=== PATIENT | female | born 1995 | race African-American/Black ===

== ENCOUNTER 2017-05-13 02:50 | Inpatient (IN) | payer MEDICAID ==
[2017-05-13] VITALS (18 sets, daily range): BP systolic 103–139; BP diastolic 53–84
[~2017-05-13] VITALS: Ht 149.9 cm; Wt 41.3 kg
[~2017-05-13 02:50] MED LIST: ACYC200C PO; ATOR20TA PO; INSU3INS6 SUBCUT; LISI10TA5 PO; OMEP20CA10 PO
[2017-05-13] MEDS ORDERED: KETOROLAC 30MG/ML VIAL IV STA (03:18)
[2017-05-13] MEDS ORDERED: SODIUM CHLORIDE 0.9% 1,000 ML IV ONE (03:18)
[2017-05-13] MEDS ORDERED: ONDANSETRON HCL 4MG/2ML VIAL IV STA (03:18)
[2017-05-13 03:43] LABS: BASOPHILS % 0.3 % (0.0-2.0); EOSINOPHILS % 0.2 % (0.0-5.0); HEMATOCRIT. 45.5 % (36.0-48.0); HEMOGLOBIN. 15.1 g/dL (12.0-16.0); LYMPHOCYTES % 36.5 % (20.0-50.0); MEAN CORPUSCULAR HEMOGLOBIN 31.5 pg (28.0-32.0); MEAN CORPUSCULAR VOLUME 95.1 fL (81.0-99.0); MEAN PLATELET VOLUME 8.1 fl (7.4-10.4); MONOCYTES % 4.6 % (2.0-8.0); NEUTROPHILS % 58.4 % (40.0-76.0); PLATELET 379 x1000/uL (130-400); RED BLOOD CELL COUNT 4.78 mill/uL (4.2-5.4); RED CELL DISTRIBUTION WIDTH 12.8 % (11.6-14.6)
[2017-05-13 03:45] LABS: CLARITY URINE CLEAR (CLEAR); COLOR URINE YELLOW (YELLOW); GLUCOSE URINE 3+ (NEGATIVE); KETONES URINE 4+ (NEGATIVE); LEUKOCYTE ESTERASE URINE NEGATIVE (NEGATIVE); NITRITE URINE NEGATIVE (NEGATIVE); OCCULT BLOOD URINE 2+ (NEGATIVE); PROTEIN URINE NEGATIVE (NEGATIVE); SPECIFIC GRAVITY URINE 1.033 (1.005-1.030); UROBILINOGEN URINE 0.2 E.U./dL (0.2-1.0)
[2017-05-13 03:48] LABS: HCG SCREEN NEGATIVE; INR 1.1; PROTHROMBIN TIME 11.5 sec
[2017-05-13 03:54] LABS: CARBON DIOXIDE 11 mEq/L (21-32); CHLORIDE 94 mEq/L (98-107)
[2017-05-13] MEDS ORDERED: METOCLOPRAMIDE HCL 10MG/2ML VIAL IV ONE (04:15)
[2017-05-13] MEDS ORDERED: INSULIN REGULAR (DRIP) 100 UNITS in SODIUM CHLORIDE 0.9% 100 ML IV ONE ×4 (04:30)
[2017-05-13] MEDS ORDERED: MORPHINE SULFATE 4 MG/ML CPJ (NOT FOR IM USE) IV ONE ×2 (05:00→05:30)
[2017-05-13 07:28] LABS: CARBON DIOXIDE 12 mEq/L (21-32); CHLORIDE 104 mEq/L (98-107)
[2017-05-13] MEDS ORDERED: DEXTROSE 50% WATER 50ML SYRINGE IV PRN (07:30)
[2017-05-13] MEDS ORDERED: INSULIN REGULAR (DRIP) 100 UNITS in SODIUM CHLORIDE 0.9% 99 ML IV PRN (07:45)
[2017-05-13] MEDS ORDERED: CLONIDINE 0.1MG TABLET PO PRN (08:15)
[2017-05-13] MEDS ORDERED: ZOLPIDEM TARTRATE 5MG TABLET PO PRN (08:15)
[2017-05-13] MEDS ORDERED: SODIUM CHLORIDE 0.9% 1,000 ML IV SCH (08:15)
[2017-05-13] MEDS ORDERED: NA PHOS,M-B/NA PHOS,DI-BA ENEMA 118ML PR PRN (08:15)
[2017-05-13] MEDS ORDERED: IPRATROPIUM/ALBUTEROL 0.5-3(2.5)MG/3ML NEB INH PRN (08:15)
[2017-05-13] MEDS: BLOOD SUGAR DIAGNOSTIC STRIP TEST SCH ×16 (08:15→23:02)
[2017-05-13] MEDS ORDERED: GUAIFENESIN 200MG/10ML SUGAR FREE UDC PO PRN (08:15)
[2017-05-13] MEDS ORDERED: DOCUSATE SODIUM 100MG CAPSULE PO PRN (08:15)
[2017-05-13] MEDS ORDERED: MAGNESIUM/ALUMINUM HYDROXIDE/SIMETHICONE 30ML UDC PO PRN (08:15)
[2017-05-13] MEDS ORDERED: ACETAMINOPHEN 325MG TABLET PO PRN (08:15)
[2017-05-13] MEDS: ONDANSETRON HCL 4MG/2ML VIAL IV PRN ×3 (08:20→23:30)
[2017-05-13] MEDS: PANTOPRAZOLE SODIUM 40 MG/VIAL IV SCH (08:21)
[2017-05-13] MEDS: LORAZEPAM 2MG/ML CPJ IV PRN ×2 (08:56→13:39)
[2017-05-13] MEDS: KETOROLAC 30MG/ML VIAL IV PRN ×2 (08:56→17:55)
[2017-05-13 11:22] LABS: *AMPHETAMINES SCREEN URINE NEGATIVE (NEGATIVE); *BARBITURATES SCREEN URINE NEGATIVE (NEGATIVE); *BENZODIAZEPINES SCREEN URINE NEGATIVE (NEGATIVE); *COCAINE SCREEN URINE NEGATIVE (NEGATIVE); METHADONE URINE SCREEN NEGATIVE (NEGATIVE); OPIATES URINE SCREEN NEGATIVE (NEGATIVE); PHENCYCLIDINE URINE SCREEN NEGATIVE (NEGATIVE)
[2017-05-13 11:43] LABS: CANNABINOID URINE SCREEN PRESUMTIVE POSITIVE (NEGATIVE)
[2017-05-13 12:38] LABS: CARBON DIOXIDE 17 mEq/L (21-32); CHLORIDE 109 mEq/L (98-107)
[2017-05-13 12:39] LABS: PHOSPHORUS 2.5 mg/dL (2.5-4.9)
[2017-05-13] MEDS ORDERED: DEXT 5%/0.9% NACL 1,000 ML IV SCH (12:45)
[2017-05-13] MEDS: SUCRALFATE 1 G/10 ML UDC PO SCH ×3 (12:53→20:48)
[2017-05-13] MEDS: ERYTHROMYCIN LACTOBIONATE 500 MG in SODIUM CHLORIDE 0.9% 100 ML IV SCH ×2 (12:53→17:04)
[2017-05-13] MEDS: METOCLOPRAMIDE 10MG/10 ML UDC PO SCH ×3 (12:53→20:48)
[2017-05-13 15:40] LABS: CARBON DIOXIDE 15 mEq/L (21-32); CHLORIDE 109 mEq/L (98-107)
[2017-05-13] MEDS: DEXT 5%/0.9% NACL KCL 20MEQ/L 1,000 ML IV SCH (17:54)
[2017-05-13] MEDS: DIPHENHYDRAMINE 50MG/ML VIAL IV PRN ×2 (17:54→23:30)
[2017-05-13] MEDS ORDERED: POTASSIUM CHLORIDE INJ 20 MEQ in DEXT 5%/0.9% NACL 1,000 ML IV SCH (18:00)
[2017-05-13] MEDS ORDERED: POTASSIUM PHOS,M-BASIC-D-BASIC 15 MMOL in DEXT 5% WATER 245 ML IV NR (18:00)
[2017-05-13] MEDS: DEXTROSE 50% WATER 50ML SYRINGE IV PRN ×2 (18:20→22:58)
[2017-05-14] VITALS (15 sets, daily range): BP systolic 99–142; BP diastolic 53–90
[2017-05-14] MEDS: BLOOD SUGAR DIAGNOSTIC STRIP TEST SCH ×9 (00:29→08:13)
[2017-05-14] MEDS: DEXT 5%/0.9% NACL KCL 20MEQ/L 1,000 ML IV SCH ×2 (00:50→06:26)
[2017-05-14] MEDS: ONDANSETRON HCL 4MG/2ML VIAL IV PRN ×2 (02:51→06:54)
[2017-05-14] MEDS: DIPHENHYDRAMINE 50MG/ML VIAL IV PRN (03:46)
[2017-05-14] MEDS: KETOROLAC 30MG/ML VIAL IV PRN ×2 (03:47→13:13)
[2017-05-14] MEDS: LORAZEPAM 2MG/ML CPJ IV PRN ×2 (04:41→08:49)
[2017-05-14 06:48] LABS: CARBON DIOXIDE 17 mEq/L (21-32); CHLORIDE 115 mEq/L (98-107)
[2017-05-14] MEDS: METOCLOPRAMIDE 10MG/10 ML UDC PO SCH ×2 (08:12→13:13)
[2017-05-14] MEDS: PANTOPRAZOLE SODIUM 40 MG/VIAL IV SCH (08:12)
[2017-05-14] MEDS: SUCRALFATE 1 G/10 ML UDC PO SCH ×2 (08:12→13:13)
[2017-05-14] MEDS ORDERED: DEXTROSE 50% WATER 50ML SYRINGE IV PRN (08:15)
[2017-05-14] MEDS: INSULIN LISPRO 100 UNITS/ML SUBCUT SCH ×2 (08:20→13:20)
[2017-05-14] MEDS ORDERED: POTASSIUM CHLORIDE 20MEQ TABLET SR PO SCH (08:30)
[2017-05-14] MEDS ORDERED: INSULIN DETEMIR UD 100 UNITS/ML SYR SUBCUT SCH (10:00)
[2017-05-14 11:24] LABS: CARBON DIOXIDE 18 mEq/L (21-32); CHLORIDE 111 mEq/L (98-107); PHOSPHORUS 1.1 mg/dL (2.5-4.9)
[2017-05-14] MEDS ORDERED: INSULIN LISPRO 100 UNITS/ML SUBCUT SCH (12:50)
[2017-05-14] MEDS ORDERED: BLOOD SUGAR DIAGNOSTIC STRIP TEST SCH (12:50)
[2017-05-14] MEDS: DEXTROSE 50% WATER 50ML SYRINGE IV PRN (13:02)
== END 2017-05-14 15:00 | disposition home or self-care (01) | DRG 420 ==
LOC: ER 03:00 → ENRESERV 05:41 → CVICU 05:50 → EDBEDREQ 05:54
PROVIDERS: ADMIT Internal Medicine Critical Care Medicine; ATTEND Internal Medicine
DX: E13.10 Other specified diabetes mellitus with ketoacidosis without coma (principal); E83.39 Other disorders of phosphorus metabolism; I10 Essential (primary) hypertension; E87.1 Hypo-osmolality and hyponatremia; F12.10 Cannabis abuse, uncomplicated; E87.6 Hypokalemia; E83.52 Hypercalcemia; E78.00 Pure hypercholesterolemia, unspecified; F17.200 Nicotine dependence, unspecified, uncomplicated; Z91.14 Patient's other noncompliance with medication regimen; Z79.4 Long term (current) use of insulin
CPT/HCPCS: 36415; 74176; 80048; 80053; 80061; 80305; 81001; 82962; 83036; 83690; 84100; 84703; 85025; 85610; 96374; 96375; 96376; 99291; C1725; C9113; J1200; J1364; J1815; J1885; J2060; J2270; J2405; J2765; J3480; J3490; J7030; J7042; J7050; J7060; J8597

== ENCOUNTER 2018-08-21 16:39 | Emergency (ER) | payer MEDICAID ==
[~2018-08-21] VITALS: Ht 162.6 cm; Wt 55.0 kg
[2018-08-21] MEDS ORDERED: KETOROLAC 30MG/ML VIAL IV STA (17:39)
[2018-08-21] MEDS ORDERED: SODIUM CHLORIDE 0.9% 1,000 ML IV ONE ×2 (17:39→19:15)
[2018-08-21] MEDS ORDERED: ONDANSETRON HCL 4MG/2ML INJ IV STA (17:39)
[2018-08-21 19:18] LABS: BASOPHILS % 0.5 % (0.0-2.0); EOSINOPHILS % 0.9 % (0.0-5.0); HEMATOCRIT. 42.5 % (36.0-48.0); HEMOGLOBIN. 13.8 g/dL (12.0-16.0); LYMPHOCYTES % 35.5 % (20.0-50.0); MEAN CORPUSCULAR HEMOGLOBIN 32.4 pg (28.0-32.0); MEAN CORPUSCULAR VOLUME 99.4 fL (81.0-99.0); MEAN PLATELET VOLUME 8.2 fl (7.4-10.4); MONOCYTES % 6.9 % (2.0-8.0); NEUTROPHILS % 56.2 % (40.0-76.0); PLATELET 496 x1000/uL (130-400); RED BLOOD CELL COUNT 4.27 mill/uL (4.2-5.4); RED CELL DISTRIBUTION WIDTH 13.2 % (11.6-14.6)
[2018-08-21 19:24] LABS: CHLORIDE 88 mEq/L (98-107)
[2018-08-21 19:38] LABS: BETA HYDROXYBUTYRATE 0.9 mMol/L (0.0-0.3)
[2018-08-21 20:03] LABS: CLARITY URINE CLEAR (CLEAR); COLOR URINE YELLOW (YELLOW); KETONES URINE 1+ (NEGATIVE); LEUKOCYTE ESTERASE URINE NEGATIVE (NEGATIVE); NITRITE URINE NEGATIVE (NEGATIVE); OCCULT BLOOD URINE NEGATIVE (NEGATIVE); PH URINE 6.5 (4.5-8.0); PROTEIN URINE NEGATIVE (NEGATIVE); SPECIFIC GRAVITY URINE 1.033 (1.005-1.030); UROBILINOGEN URINE 0.2 E.U./dL (0.2-1.0)
[2018-08-21] MEDS ORDERED: INSULIN REGULAR 0.5UNIT/ML SYR(NEO) IV ONE (20:45)
[2018-08-21] MEDS ORDERED: INSULIN REGULAR (HUMULIN R) UD 100 UNITS/ML SYR IV ONE (21:15)
[2018-08-21] MEDS ORDERED: CEFTRIAXONE SODIUM 1 G/VIAL IV ONE (22:15)
[2018-08-21] MEDS ORDERED: ONDANSETRON HCL 4MG/2ML INJ IM ONE (22:15)
[2018-08-21] MEDS ORDERED: MORPHINE SULFATE 4 MG/ML CPJ (NOT FOR IM USE) IV ONE (22:15)
[2018-08-21] MEDS ORDERED: OMEPRAZOLE 20MG CAPSULE EXTENDED RELEASE PO ONE (22:30)
[2018-08-21 22:34] VITALS: BP 130/88
== END 2018-08-21 23:46 | disposition home or self-care (01) ==
LOC: ER 16:49
DX: E10.65 Type 1 diabetes mellitus with hyperglycemia (principal); R39.15 Urgency of urination; R10.30 Lower abdominal pain, unspecified; I10 Essential (primary) hypertension; F12.10 Cannabis abuse, uncomplicated; Z79.4 Long term (current) use of insulin; Z79.899 Other long term (current) drug therapy
CPT/HCPCS: 36415; 74150; 80053; 81003; 81025; 82010; 82962; 85025; 87077; 87086; 96361; 96372; 96374; 96375; 99285; J0696; J1815; J1885; J2270; J2405; J7030; Z7610

== ENCOUNTER 2018-09-17 22:11 | Inpatient (IN) | payer MEDICAID ==
[~2018-09-17] VITALS: Ht 139.7 cm; Wt 49.0 kg
[2018-09-17] MEDS ORDERED: METOCLOPRAMIDE HCL 10MG/2ML VIAL IV ONE (23:30)
[2018-09-17] MEDS ORDERED: KETOROLAC 30MG/ML VIAL IV STA (23:30)
[2018-09-17] MEDS ORDERED: SODIUM CHLORIDE 0.9% 1,000 ML IV ONE (23:30)
[2018-09-17 23:59] LABS: BASOPHILS % 0.2 % (0.0-2.0); HEMATOCRIT. 43.2 % (36.0-48.0); HEMOGLOBIN. 14.3 g/dL (12.0-16.0); LYMPHOCYTES % 29.2 % (20.0-50.0); MEAN CORPUSCULAR HEMOGLOBIN 32.7 pg (28.0-32.0); MEAN CORPUSCULAR VOLUME 98.7 fL (81.0-99.0); MEAN PLATELET VOLUME 7.6 fl (7.4-10.4); MONOCYTES % 4.9 % (2.0-8.0); NEUTROPHILS % 65.7 % (40.0-76.0); PLATELET 421 x1000/uL (130-400); RED BLOOD CELL COUNT 4.37 mill/uL (4.2-5.4); RED CELL DISTRIBUTION WIDTH 13.4 % (11.6-14.6)
[2018-09-18 00:12] LABS: CLARITY URINE CLOUDY (CLEAR); COLOR URINE YELLOW (YELLOW); KETONES URINE 4+ (NEGATIVE); LEUKOCYTE ESTERASE URINE NEGATIVE (NEGATIVE); NITRITE URINE NEGATIVE (NEGATIVE); OCCULT BLOOD URINE NEGATIVE (NEGATIVE); PROTEIN URINE TRACE (NEGATIVE); SPECIFIC GRAVITY URINE 1.027 (1.005-1.030); UROBILINOGEN URINE 0.2 E.U./dL (0.2-1.0)
[2018-09-18 00:16] LABS: CHLORIDE 96 mEq/L (98-107)
[2018-09-18 00:24] LABS: ETHANOL BLOOD < 10 mg/dL
[2018-09-18 00:38] LABS: *AMPHETAMINES SCREEN URINE NEGATIVE (NEGATIVE); *BARBITURATES SCREEN URINE NEGATIVE (NEGATIVE); *BENZODIAZEPINES SCREEN URINE NEGATIVE (NEGATIVE); *COCAINE SCREEN URINE NEGATIVE (NEGATIVE); METHADONE URINE SCREEN NEGATIVE (NEGATIVE); OPIATES URINE SCREEN NEGATIVE (NEGATIVE)
[2018-09-18 00:40] LABS: PHENCYCLIDINE URINE SCREEN NEGATIVE (NEGATIVE)
[2018-09-18 00:45] LABS: CANNABINOID URINE SCREEN PRESUMTIVE POSITIVE (NEGATIVE)
[2018-09-18] MEDS ORDERED: SODIUM CHLORIDE 0.9% 1,000 ML IV ONE (01:30)
[2018-09-18] MEDS ORDERED: INSULIN REGULAR (DRIP) 100 UNITS in SODIUM CHLORIDE 0.9% 100 ML IV ONE (02:59)
[2018-09-18 05:52] LABS: CHLORIDE 100 mEq/L (98-107)
[2018-09-18] MEDS: SODIUM CHLORIDE 0.9% 1,000 ML IV SCH ×3 (05:57→22:20)
[2018-09-18 07:42] LABS: CHLORIDE 107 mEq/L (98-107)
[2018-09-18 08:39] LABS: CHLORIDE 105 mEq/L (98-107)
[2018-09-18] MEDS ORDERED: INSULIN LISPRO 100 UNITS/ML SUBCUT ONE (09:15)
[2018-09-18] MEDS ORDERED: ONDANSETRON HCL 4MG/2ML INJ IV NR (09:15)
[2018-09-18] MEDS ORDERED: INSULIN LISPRO 100 UNITS/ML SUBCUT NR (09:30)
[2018-09-18] MEDS: MORPHINE SULFATE 4 MG/ML CPJ (NOT FOR IM USE) IV PRN ×3 (09:45→22:19)
[2018-09-18] MEDS: DEXT 5%/0.9% NACL 1,000 ML IV SCH ×2 (09:47→23:29)
[2018-09-18] MEDS ORDERED: INSULIN GLARGINE UD 100 UNITS/ML SYR SUBCUT NR (10:00)
[2018-09-18 10:22] LABS: BASOPHILS % 0.4 % (0.0-2.0); HEMOGLOBIN. 12.6 g/dL (12.0-16.0); LYMPHOCYTES % 19.6 % (20.0-50.0); MEAN CORPUSCULAR HEMOGLOBIN 32.8 pg (28.0-32.0); MEAN CORPUSCULAR VOLUME 99.1 fL (81.0-99.0); MEAN PLATELET VOLUME 6.9 fl (7.4-10.4); MONOCYTES % 5.9 % (2.0-8.0); NEUTROPHILS % 74.1 % (40.0-76.0); PLATELET 498 x1000/uL (130-400); RED BLOOD CELL COUNT 3.84 mill/uL (4.2-5.4); RED CELL DISTRIBUTION WIDTH 13.4 % (11.6-14.6)
[2018-09-18 10:38] LABS: CHLORIDE 103 mEq/L (98-107)
[2018-09-18 10:47] LABS: BETA HYDROXYBUTYRATE 4.1 mMol/L (0.0-0.3)
[2018-09-18] MEDS ORDERED: INSULIN REGULAR (HUMULIN R) 300UNITS/3ML SUBCUT NR (11:45)
[2018-09-18] MEDS: METOCLOPRAMIDE HCL 10MG/2ML VIAL IV PRN ×2 (11:51→19:49)
[2018-09-18 21:20] VITALS: BP_SYST 119; BP_SYST 137; BP_DIAS 72; BP_DIAS 76
[2018-09-18 22:00] VITALS: BP 177/57
[2018-09-18] MEDS ORDERED: FAMO20TA8 MT (23:21)
[2018-09-18] MEDS ORDERED: METO-293 MT (23:21)
[2018-09-19] VITALS (12 sets, daily range): BP systolic 112–145; BP diastolic 65–90
[2018-09-19] MEDS ORDERED: METOCLOPRAMIDE HCL PO PRN
[2018-09-19] MEDS: CEFTRIAXONE 1 G PREMIX 50 ML IV SCH ×2 (00:04→21:14)
[2018-09-19] MEDS ORDERED: METOCLOPRAMIDE HCL 10MG TABLET PO PRN (01:15)
[2018-09-19] MEDS: METOCLOPRAMIDE HCL 10MG/2ML VIAL IV PRN ×3 (01:56→17:37)
[2018-09-19] MEDS: MORPHINE SULFATE 4 MG/ML CPJ (NOT FOR IM USE) IV PRN ×5 (03:56→23:08)
[2018-09-19] MEDS ORDERED: POLYETHYLENE GLYCOL 3350 (17GM) 1 DOSE PACK PO SCH (05:45)
[2018-09-19] MEDS ORDERED: CEFTRIAXONE 1 G PREMIX 50 ML IV ONE (06:00)
[2018-09-19] MEDS ORDERED: DEXTROSE 50% WATER 50ML SYRINGE IV PRN (06:15)
[2018-09-19 06:29] LABS: BASOPHILS % 0.6 % (0.0-2.0); EOSINOPHILS % 0.4 % (0.0-5.0); HEMATOCRIT. 33.9 % (36.0-48.0); HEMOGLOBIN. 11.3 g/dL (12.0-16.0); MEAN CORPUSCULAR HEMOGLOBIN 33.2 pg (28.0-32.0); MEAN CORPUSCULAR VOLUME 99.7 fL (81.0-99.0); MEAN PLATELET VOLUME 7.3 fl (7.4-10.4); MONOCYTES % 5.7 % (2.0-8.0); NEUTROPHILS % 68.3 % (40.0-76.0); PLATELET 412 x1000/uL (130-400); RED CELL DISTRIBUTION WIDTH 13.5 % (11.6-14.6)
[2018-09-19] MEDS ORDERED: BLOOD SUGAR DIAGNOSTIC STRIP TEST SCH (07:30)
[2018-09-19] MEDS ORDERED: OMEPRAZOLE 20MG CAPSULE EXTENDED RELEASE PO SCH (07:30)
[2018-09-19] MEDS: ACYCLOVIR 400 MG TABLET PO SCH ×2 (08:07→16:27)
[2018-09-19] MEDS: PANTOPRAZOLE 40MG DR TABLET PO SCH (08:07)
[2018-09-19] MEDS: LISINOPRIL 10MG TABLET PO SCH (08:07)
[2018-09-19] MEDS: INSULIN LISPRO 100 UNITS/ML SUBCUT SCH ×4 (08:09→21:13)
[2018-09-19 08:11] LABS: CHLORIDE 100 mEq/L (98-107)
[2018-09-19] MEDS: BLOOD SUGAR DIAGNOSTIC STRIP TEST SCH ×4 (08:12→21:14)
[2018-09-19] MEDS ORDERED: MEDICATION NOT ON FORMULARY EA (Lisinopril 10 MG) PO SCH (09:00)
[2018-09-19] MEDS ORDERED: FAMOTIDINE 20MG TABLET PO SCH (09:00)
[2018-09-19] MEDS ORDERED: MEDICATION NOT ON FORMULARY EA (Famotidine 1 TAB) MT SCH (09:00)
[2018-09-19] MEDS ORDERED: MEDICATION NOT ON FORMULARY EA (Acyclovir 400 MG) PO SCH (09:00)
[2018-09-19] MEDS ORDERED: MAGNESIUM SULFATE 2 GM in DEXTROSE 5% WATER 50 ML IV NR (13:00)
[2018-09-19] MEDS ORDERED: POTASSIUM PHOS,M-BASIC-D-BASIC 30 MMOL in DEXT 5% WATER 500 ML IV NR (13:00)
[2018-09-19] MEDS ORDERED: MEDICATION NOT ON FORMULARY EA (Insulin Glargine,Hum.rec.anlog (Lantus Solostar) 20 UNIT SUBCUT SCH (17:00)
[2018-09-19] MEDS ORDERED: INFLUENZA VIRUS VACCINE(AFLURIA) 0.5ML SYR IM ONE (20:30)
[2018-09-19] MEDS ORDERED: ATORVASTATIN CALCIUM 20MG TABLET PO SCH (21:00)
[2018-09-19] MEDS ORDERED: ATORVASTATIN CALCIUM 10MG TABLET PO SCH (21:00)
[2018-09-19] MEDS ORDERED: INSULIN GLARGINE UD 100 UNITS/ML SYR SUBCUT SCH (22:00)
[2018-09-20] VITALS: BP 130/77
[2018-09-20 04:00] VITALS: BP 112/72
[2018-09-20] MEDS: MORPHINE SULFATE 4 MG/ML CPJ (NOT FOR IM USE) IV PRN ×2 (05:08→10:15)
[2018-09-20] MEDS: PANTOPRAZOLE 40MG DR TABLET PO SCH (06:23)
[2018-09-20] MEDS: BLOOD SUGAR DIAGNOSTIC STRIP TEST SCH ×3 (06:32→16:15)
[2018-09-20] MEDS: INSULIN LISPRO 100 UNITS/ML SUBCUT SCH ×2 (06:32→11:42)
[2018-09-20 08:00] VITALS: BP 101/67
[2018-09-20] MEDS: LISINOPRIL 10MG TABLET PO SCH (09:00)
[2018-09-20] MEDS: ACYCLOVIR 400 MG TABLET PO SCH ×2 (10:12→16:15)
[2018-09-20 12:00] VITALS: BP 129/83
[2018-09-20 15:00] VITALS: BP 129/83
[2018-09-20] MEDS ORDERED: PNEUMOCOCCAL 23-VAL P-SAC VAC 0.5 ML IM ONE (16:00)
[2018-09-21] MEDS ORDERED: FAMOTIDINE 20MG TABLET PO SCH (09:00)
== END 2018-09-20 17:30 | disposition home or self-care (01) | DRG 420 ==
LOC: ER 22:11 → CANRESERV 09-18 02:20 → ENRESERV 09-18 02:20 → 5EST 09-18 03:02 → EDBEDREQTM 09-18 03:04 → EDBEDREQSVC 09-18 03:04 → EDBEDREQ 09-18 03:04 → ENRESERV 09-18 03:08 → CANRESERV 09-18 03:08 → EDBEDREQSVC 09-18 14:02 → ENRESERV 09-18 20:15 → 8WST 09-20 00:20
PROVIDERS: ADMIT Internal Medicine Nephrology; ATTEND Internal Medicine Nephrology
DX: E10.10 Type 1 diabetes mellitus with ketoacidosis without coma (principal); E83.42 Hypomagnesemia; E87.1 Hypo-osmolality and hyponatremia; I10 Essential (primary) hypertension; N39.0 Urinary tract infection, site not specified; E78.00 Pure hypercholesterolemia, unspecified; K21.9 Gastro-esophageal reflux disease without esophagitis; G89.29 Other chronic pain; Z82.49 Family history of ischemic heart disease and other diseases of the circulatory system; Z91.19 Patient's noncompliance with other medical treatment and regimen; Z79.899 Other long term (current) drug therapy
CPT/HCPCS: 36415; 74176; 76705; 80048; 80305; 81025; 82010; 82962; 83605; 83735; 84100; 90732; 93005; 96361; 96372; 96374; 96375; 96376; 99291; C1893; G0482; J0696; J1815; J1885; J2270; J2405; J2765; J3475; J3490; J7030; J7042; J7050; J7060; J7070; J8597

== ENCOUNTER 2018-09-27 18:05 | Emergency (ER) | payer MEDICAID ==
[~2018-09-27] VITALS: Ht 149.9 cm; Wt 45.5 kg
[~2018-09-27 18:05] MED LIST changes: +FAMO20TA8 MT; +METO-293 MT
[2018-09-27 18:43] VITALS: BP 156/102
== END 2018-09-27 22:45 | disposition left against medical advice (07) ==
LOC: ER 18:05
DX: R10.9 Unspecified abdominal pain (principal); R11.2 Nausea with vomiting, unspecified; Z53.21 Procedure and treatment not carried out due to patient leaving prior to being seen by health care provider
CPT/HCPCS: 82962

== ENCOUNTER 2019-06-21 12:42 | Emergency (ER) | payer MEDICAID ==
[~2019-06-21] VITALS: Ht 162.6 cm; Wt 48.0 kg
[~2019-06-21 12:42] MED LIST changes: -OMEP20CA10 PO; +OMEP20CA5 PO
[2019-06-21] MEDS ORDERED: SODIUM CHLORIDE 0.9% 1,000 ML IV ONE (15:52)
[2019-06-21] MEDS ORDERED: KETOROLAC 30MG/ML VIAL IV STA (15:52)
[2019-06-21] MEDS ORDERED: ONDANSETRON HCL 4MG/2ML INJ IV STA ×2 (15:52→18:22)
[2019-06-21 16:24] LABS: CLARITY URINE CLEAR (CLEAR); COLOR URINE YELLOW (YELLOW); KETONES URINE 1+ (NEGATIVE); LEUKOCYTE ESTERASE URINE TRACE (NEGATIVE); NITRITE URINE NEGATIVE (NEGATIVE); OCCULT BLOOD URINE NEGATIVE (NEGATIVE); PH URINE 6.5 (4.5-8.0); PROTEIN URINE 1+ (NEGATIVE); SPECIFIC GRAVITY URINE 1.021 (1.005-1.030); UROBILINOGEN URINE 0.2 E.U./dL (0.2-1.0)
[2019-06-21 16:27] LABS: EOSINOPHILS % 0.9 % (0.0-5.0); HEMATOCRIT. 41.9 % (36.0-48.0); LYMPHOCYTES % 30.7 % (20.0-50.0); MEAN CORPUSCULAR HEMOGLOBIN 30.8 pg (28.0-32.0); MEAN CORPUSCULAR VOLUME 92.1 fL (81.0-99.0); MEAN PLATELET VOLUME 7.5 fl (7.4-10.4); MONOCYTES % 4.1 % (2.0-8.0); NEUTROPHILS % 63.3 % (40.0-76.0); PLATELET 588 x1000/uL (130-400); RED BLOOD CELL COUNT 4.55 mill/uL (4.2-5.4); RED CELL DISTRIBUTION WIDTH 13.2 % (11.6-14.6)
[2019-06-21 16:32] LABS: CHLORIDE 98 mEq/L (98-107)
[2019-06-21 16:34] LABS: HCG SCREEN NEGATIVE
[2019-06-21 16:36] LABS: ETHANOL BLOOD < 10 mg/dL
[2019-06-21 16:50] LABS: *BARBITURATES SCREEN URINE NEGATIVE (NEGATIVE); *BENZODIAZEPINES SCREEN URINE NEGATIVE (NEGATIVE); *COCAINE SCREEN URINE NEGATIVE (NEGATIVE); METHADONE URINE SCREEN NEGATIVE (NEGATIVE); OPIATES URINE SCREEN NEGATIVE (NEGATIVE); PHENCYCLIDINE URINE SCREEN NEGATIVE (NEGATIVE)
[2019-06-21 16:51] LABS: *AMPHETAMINES SCREEN URINE NEGATIVE (NEGATIVE)
[2019-06-21 17:02] LABS: CANNABINOID URINE SCREEN PRESUMTIVE POSITIVE (NEGATIVE)
[2019-06-21] MEDS ORDERED: LORAZEPAM 2MG/ML CPJ IV ONE (17:15)
[2019-06-21] MEDS ORDERED: POTASSIUM CHLORIDE 20MEQ TABLET SR PO ONE (18:00)
[2019-06-21] MEDS ORDERED: POTASSIUM CHLORIDE 20MEQ TABLET SR PO SCH (18:00)
[2019-06-21] MEDS ORDERED: MORPHINE SULFATE 4 MG/ML CPJ (NOT FOR IM USE) IV STA (18:22)
[2019-06-21 19:16] VITALS: BP 111/75
== END 2019-06-21 19:29 | disposition home or self-care (01) ==
LOC: ER 14:08
DX: R10.33 Periumbilical pain (principal); E87.6 Hypokalemia; E11.9 Type 2 diabetes mellitus without complications; Z79.4 Long term (current) use of insulin; Z87.19 Personal history of other diseases of the digestive system
CPT/HCPCS: 36415; 74176; 80053; 80305; 80320; 81003; 82962; 83690; 84703; 85025; 96361; 96374; 96375; 96376; 99284; J1885; J2060; J2270; J2405; J7030; G0480

== ENCOUNTER 2019-06-21 15:13 | Emergency (ER) | payer MEDICAID | END 2019-06-21 16:02 | disposition left against medical advice (07) | LOC: ER 15:18 | DX: Z53.21 Procedure and treatment not carried out due to patient leaving prior to being seen by health care provider (principal) ==

== ENCOUNTER 2020-06-10 13:24 | Inpatient (IN) | payer MEDICAID ==
[~2020-06-10] VITALS: Ht 152.4 cm; Wt 50.1 kg
[~2020-06-10 13:24] MED LIST changes: +OMEP20CA14 PO; -OMEP20CA5 PO
[2020-06-10] MEDS ORDERED: ONDANSETRON HCL 4MG/2ML INJ IV STA (14:22)
[2020-06-10] MEDS ORDERED: MAGNESIUM/ALUMINUM HYDROXIDE/SIMETHICONE 30ML UDC PO STA (14:22)
[2020-06-10] MEDS ORDERED: VISCOUS LIDOCAINE 2% 15 ML UDC PO STA (14:22)
[2020-06-10 15:10] LABS: BASOPHILS % 0.5 % (0.0-2.0); EOSINOPHILS % 0.1 % (0.0-5.0); HEMATOCRIT. 37.2 % (36.0-48.0); HEMOGLOBIN. 12.1 g/dL (12.0-16.0); LYMPHOCYTES % 21.5 % (20.0-50.0); MEAN CORPUSCULAR VOLUME 101.4 fL (81.0-99.0); MEAN PLATELET VOLUME 7.1 fl (7.4-10.4); MONOCYTES % 3.6 % (2.0-8.0); NEUTROPHILS % 74.3 % (40.0-76.0); PLATELET 443 x1000/uL (130-400); RED BLOOD CELL COUNT 3.67 mill/uL (4.2-5.4); RED CELL DISTRIBUTION WIDTH 14.4 % (11.6-14.6)
[2020-06-10] MEDS ORDERED: MORPHINE SULFATE 4 MG/ML CPJ (NOT FOR IM USE) IV ONE (15:15)
[2020-06-10] MEDS ORDERED: METOCLOPRAMIDE HCL 10MG/2ML VIAL IV ONE (15:15)
[2020-06-10 15:17] LABS: CHLORIDE 95 mEq/L (98-107)
[2020-06-10 15:19] LABS: CLARITY URINE CLEAR (CLEAR); COLOR URINE YELLOW (YELLOW); KETONES URINE 4+ (NEGATIVE); LEUKOCYTE ESTERASE URINE NEGATIVE (NEGATIVE); NITRITE URINE NEGATIVE (NEGATIVE); OCCULT BLOOD URINE NEGATIVE (NEGATIVE); PROTEIN URINE NEGATIVE (NEGATIVE); UROBILINOGEN URINE 0.2 E.U./dL (0.2-1.0)
[2020-06-10 15:32] LABS: INR 1.1; PROTHROMBIN TIME 11.8 sec (9.6-11.0)
[2020-06-10 15:45] LABS: HCG SCREEN NEGATIVE
[2020-06-10] MEDS ORDERED: POTASSIUM CHLORIDE INJ 30 MEQ in DEXT 5%/0.9% NACL 1,000 ML IV ONE (15:45)
[2020-06-10] MEDS ORDERED: MAGNESIUM 1 G PREMIX 100 ML IV SCH (15:45)
[2020-06-10 15:53] LABS: PHOSPHORUS < 2.1 mg/dL (2.5-4.9)
[2020-06-10 15:56] LABS: *AMPHETAMINES SCREEN URINE NEGATIVE (NEGATIVE); *BARBITURATES SCREEN URINE NEGATIVE (NEGATIVE); *BENZODIAZEPINES SCREEN URINE NEGATIVE (NEGATIVE); *COCAINE SCREEN URINE NEGATIVE (NEGATIVE); METHADONE URINE SCREEN NEGATIVE (NEGATIVE); OPIATES URINE SCREEN NEGATIVE (NEGATIVE); PHENCYCLIDINE URINE SCREEN NEGATIVE (NEGATIVE)
[2020-06-10] MEDS ORDERED: MAGNESIUM SULFATE IV ONE (16:00)
[2020-06-10] MEDS ORDERED: DEXT IV ONE (16:00)
[2020-06-10] MEDS ORDERED: DEXTROSE 50% WATER 50ML SYRINGE IV PRN ×2 (16:00)
[2020-06-10] MEDS ORDERED: NACL IV ONE (16:00)
[2020-06-10] MEDS ORDERED: SODIUM CHLORIDE 0.9% 1000ML BAG (SEPSIS BOLUS) IV ONE (16:00)
[2020-06-10] MEDS ORDERED: POTASSIUM CHLORIDE IV ONE (16:00)
[2020-06-10 16:04] LABS: CANNABINOID URINE SCREEN PRESUMTIVE POSITIVE (NEGATIVE)
[2020-06-10] MEDS ORDERED: INSULIN REGULAR (DRIP) 100 UNITS in SODIUM CHLORIDE 0.9% 100 ML IV NR (16:15)
[2020-06-10 16:40] LABS: CHLORIDE 95 mEq/L (98-107)
[2020-06-10] MEDS: SODIUM CHLORIDE 0.45% 1,000 ML IV SCH ×2 (17:00→21:37)
[2020-06-10] MEDS ORDERED: ONDANSETRON HCL 4MG/2ML INJ IV ONE (17:45)
[2020-06-10] MEDS: BLOOD SUGAR DIAGNOSTIC STRIP TEST SCH ×8 (17:45→23:05)
[2020-06-10] MEDS ORDERED: DIPHENHYDRAMINE 50MG/ML VIAL IV NR (18:30)
[2020-06-10] MEDS ORDERED: SODIUM BICARBONATE 8.4% 1 MEQ/ML 50ML SYR IV NR (18:30)
[2020-06-10 19:51] LABS: CHLORIDE 99 mEq/L (98-107)
[2020-06-10] MEDS ORDERED: POTASSIUM PHOS,M-BASIC-D-BASIC 20 MMOL in DEXT 5% WATER 243.3333 ML IV SCH (20:00)
[2020-06-10] MEDS: ONDANSETRON HCL 4MG/2ML INJ IV PRN (20:37)
[2020-06-10 21:08] VITALS: BP 133/70
[2020-06-10 21:08] LABS: CHLORIDE 103 mEq/L (98-107)
[2020-06-10] MEDS ORDERED: INSULIN REGULAR (DRIP) 100 UNITS in SODIUM CHLORIDE 0.9% 99 ML IV SCH (21:24)
[2020-06-10] MEDS: MORPHINE SULFATE 2 MG/ML CPJ (NOT FOR IM USE) IV PRN (21:30)
[2020-06-10] MEDS ORDERED: INSULIN REGULAR (DRIP) 100 UNITS in SODIUM CHLORIDE 0.9% 99 ML IV PRN (21:30)
[2020-06-10 22:00] VITALS: BP 116/63
[2020-06-10 23:00] VITALS: BP 131/89
[2020-06-10] MEDS: METOCLOPRAMIDE HCL 10MG/2ML VIAL IV PRN (23:01)
[2020-06-10 23:33] LABS: CHLORIDE 109 mEq/L (98-107)
[2020-06-11] VITALS (24 sets, daily range): BP systolic 109–168; BP diastolic 62–104
[2020-06-11] MEDS: BLOOD SUGAR DIAGNOSTIC STRIP TEST SCH ×20 (00:09→22:54)
[2020-06-11] MEDS: ONDANSETRON HCL 4MG/2ML INJ IV PRN ×3 (01:20→13:52)
[2020-06-11] MEDS: MORPHINE SULFATE 2 MG/ML CPJ (NOT FOR IM USE) IV PRN ×5 (01:20→23:48)
[2020-06-11] MEDS: SODIUM CHLORIDE 0.45% 1,000 ML IV SCH (05:53)
[2020-06-11] MEDS ORDERED: DEXTROSE 50% WATER 50ML SYRINGE IV PRN (07:45)
[2020-06-11] MEDS ORDERED: BLOOD SUGAR DIAGNOSTIC STRIP TEST SCH (07:50)
[2020-06-11] MEDS ORDERED: DIPHENHYDRAMINE 50MG CAPSULE PO PRN (08:10)
[2020-06-11] MEDS ORDERED: INSULIN LISPRO 100 UNITS/ML SUBCUT SCH (08:20)
[2020-06-11] MEDS: DIPHENHYDRAMINE 50MG/ML VIAL IV PRN (08:37)
[2020-06-11] MEDS: INSULIN GLARGINE UD 100 UNITS/ML SYR SUBCUT SCH ×3 (08:37→22:00)
[2020-06-11] MEDS: INSULIN LISPRO 100 UNITS/ML SUBCUT SCH (08:38)
[2020-06-11] MEDS: METOCLOPRAMIDE HCL 10MG/2ML VIAL IV PRN ×2 (08:50→15:11)
[2020-06-11] MEDS ORDERED: FAMOTIDINE 20MG/2ML VIAL IV SCH (09:00)
[2020-06-11 09:40] LABS: BASOPHILS % 0.2 % (0.0-2.0); EOSINOPHILS % 0.2 % (0.0-5.0); HEMATOCRIT. 34.8 % (36.0-48.0); HEMOGLOBIN. 11.3 g/dL (12.0-16.0); LYMPHOCYTES % 18.6 % (20.0-50.0); MEAN CORPUSCULAR HEMOGLOBIN 32.1 pg (28.0-32.0); MONOCYTES % 7.6 % (2.0-8.0); NEUTROPHILS % 73.4 % (40.0-76.0); PLATELET 410 x1000/uL (130-400); RED BLOOD CELL COUNT 3.51 mill/uL (4.2-5.4); RED CELL DISTRIBUTION WIDTH 14.2 % (11.6-14.6)
[2020-06-11 09:50] LABS: CHLORIDE 101 mEq/L (98-107)
[2020-06-11] MEDS ORDERED: INSULIN REGULAR (DRIP) 100 UNITS in SODIUM CHLORIDE 0.9% 99 ML IV SCH ×2 (10:45→11:00)
[2020-06-11] MEDS ORDERED: PANTOPRAZOLE SODIUM 40 MG/VIAL IV SCH (11:00)
[2020-06-11] MEDS: SODIUM CHLORIDE 0.9% 1,000 ML IV SCH ×3 (12:13→22:54)
[2020-06-11 12:49] LABS: BG BASE EXCESS -4.8 mmol/L (-2.0-2.0); BG CARBOXYHEMOGLOBIN 0.2 % (0.5-1.5); BG DEOXYHEMOGLOBIN 2.5 % (0.0-5.0); BG FRACTION INSPIRED OXYGEN 21; BG HCO3 ACT 20.1 mmol/L (22.0-26.0); BG METHEMOGLOBIN 0.3 % (0.0-1.5); BG OXYGEN SATURATION 97.5 % (92.0-98.5); BG PCO2 36.4 mmHg (35.0-45.0); BG SAMPLE SITE LEFT RADIAL; BG TOTAL HEMOGLOBIN 11.2 g/dL (12.0-18.0); BG VENT MODE ROOM AIR
[2020-06-11 17:23] LABS: CHLORIDE 102 mEq/L (98-107)
[2020-06-11 23:14] LABS: BASOPHILS % 0.7 % (0.0-2.0); EOSINOPHILS % 0.6 % (0.0-5.0); HEMATOCRIT. 33.5 % (36.0-48.0); HEMOGLOBIN. 11.2 g/dL (12.0-16.0); LYMPHOCYTES % 31.8 % (20.0-50.0); MEAN CORPUSCULAR HEMOGLOBIN 32.7 pg (28.0-32.0); MEAN CORPUSCULAR VOLUME 97.8 fL (81.0-99.0); MEAN PLATELET VOLUME 6.6 fl (7.4-10.4); MONOCYTES % 4.2 % (2.0-8.0); NEUTROPHILS % 62.7 % (40.0-76.0); PLATELET 427 x1000/uL (130-400); RED BLOOD CELL COUNT 3.43 mill/uL (4.2-5.4); RED CELL DISTRIBUTION WIDTH 13.7 % (11.6-14.6)
[2020-06-11 23:18] LABS: CHLORIDE 107 mEq/L (98-107)
[2020-06-12] VITALS (18 sets, daily range): BP systolic 124–186; BP diastolic 59–149
[2020-06-12] MEDS: BLOOD SUGAR DIAGNOSTIC STRIP TEST SCH ×14 (01:03→20:40)
[2020-06-12] MEDS: SODIUM CHLORIDE 0.9% 1,000 ML IV SCH ×4 (03:09→21:30)
[2020-06-12 05:46] LABS: BASOPHILS % 0.6 % (0.0-2.0); EOSINOPHILS % 1.1 % (0.0-5.0); HEMATOCRIT. 30.6 % (36.0-48.0); HEMOGLOBIN. 10.1 g/dL (12.0-16.0); LYMPHOCYTES % 31.6 % (20.0-50.0); MEAN CORPUSCULAR HEMOGLOBIN 32.3 pg (28.0-32.0); MEAN PLATELET VOLUME 6.8 fl (7.4-10.4); MONOCYTES % 5.6 % (2.0-8.0); NEUTROPHILS % 61.1 % (40.0-76.0); PLATELET 358 x1000/uL (130-400); RED BLOOD CELL COUNT 3.12 mill/uL (4.2-5.4); RED CELL DISTRIBUTION WIDTH 14.1 % (11.6-14.6)
[2020-06-12 05:58] LABS: CHLORIDE 107 mEq/L (98-107)
[2020-06-12] MEDS: ONDANSETRON HCL 4MG/2ML INJ IV PRN (05:59)
[2020-06-12 06:09] LABS: PHOSPHORUS 2.5 mg/dL (2.5-4.9)
[2020-06-12] MEDS: MORPHINE SULFATE 2 MG/ML CPJ (NOT FOR IM USE) IV PRN ×4 (06:15→22:27)
[2020-06-12 06:17] LABS: BETA HYDROXYBUTYRATE 2.4 mMol/L (0.0-0.3)
[2020-06-12] MEDS: DIPHENHYDRAMINE 50MG/ML VIAL IV PRN (07:12)
[2020-06-12] MEDS: PANTOPRAZOLE SODIUM 40 MG/VIAL IV SCH (08:25)
[2020-06-12] MEDS: INSULIN GLARGINE UD 100 UNITS/ML SYR SUBCUT SCH ×2 (09:56→21:03)
[2020-06-12] MEDS: INSULIN LISPRO 100 UNITS/ML SUBCUT SCH ×3 (12:23→17:21)
[2020-06-12] MEDS: METOCLOPRAMIDE HCL 10MG/2ML VIAL IV PRN (12:30)
[2020-06-12] MEDS: INSULIN LISPRO (LOW DOSE) 100 UNITS/ML SUBCUT SCH ×2 (12:50→17:20)
[2020-06-12] MEDS ORDERED: INSULIN LISPRO 100 UNITS/ML SUBCUT SCH ×3 (12:50→21:00)
[2020-06-12 16:39] LABS: T4 FREE 1.28 ng/dL (0.76-1.46)
[2020-06-12] MEDS: METOCLOPRAMIDE HCL 10MG/2ML VIAL IV SCH (17:19)
[2020-06-12 21:35] LABS: CHLORIDE 105 mEq/L (98-107)
[2020-06-13] VITALS: BP 131/78
[2020-06-13] MEDS: METOCLOPRAMIDE HCL 10MG/2ML VIAL IV SCH ×2 (00:13→06:15)
[2020-06-13] MEDS: MORPHINE SULFATE 2 MG/ML CPJ (NOT FOR IM USE) IV PRN (02:37)
[2020-06-13] MEDS ORDERED: BLOOD SUGAR DIAGNOSTIC STRIP TEST SCH (03:00)
[2020-06-13 04:00] VITALS: BP 148/100
[2020-06-13] MEDS: BLOOD SUGAR DIAGNOSTIC STRIP TEST SCH (06:15)
[2020-06-13 06:18] LABS: BASOPHILS % 0.6 % (0.0-2.0); EOSINOPHILS % 1.4 % (0.0-5.0); HEMATOCRIT. 31.2 % (36.0-48.0); HEMOGLOBIN. 10.7 g/dL (12.0-16.0); LYMPHOCYTES % 50.2 % (20.0-50.0); MEAN CORPUSCULAR HEMOGLOBIN 33.1 pg (28.0-32.0); MEAN CORPUSCULAR VOLUME 96.9 fL (81.0-99.0); MEAN PLATELET VOLUME 6.9 fl (7.4-10.4); NEUTROPHILS % 41.8 % (40.0-76.0); PLATELET 369 x1000/uL (130-400); RED BLOOD CELL COUNT 3.22 mill/uL (4.2-5.4); RED CELL DISTRIBUTION WIDTH 13.7 % (11.6-14.6)
[2020-06-13 07:06] LABS: CHLORIDE 104 mEq/L (98-107)
[2020-06-13 07:15] LABS: PHOSPHORUS 2.2 mg/dL (2.5-4.9)
[2020-06-13 08:00] VITALS: BP 140/91
[2020-06-13] MEDS: SODIUM CHLORIDE 0.9% 1,000 ML IV SCH (09:07)
[2020-06-13] MEDS: PANTOPRAZOLE SODIUM 40 MG/VIAL IV SCH (09:08)
[2020-06-13] MEDS: INSULIN LISPRO 100 UNITS/ML SUBCUT SCH (09:15)
[2020-06-13] MEDS ORDERED: POTASSIUM CHLORIDE 20MEQ TABLET SR PO NR (09:30)
[2020-06-13 09:35] VITALS: BP 150/91
[2020-06-13] MEDS: INSULIN GLARGINE UD 100 UNITS/ML SYR SUBCUT SCH (09:49)
[2020-06-13] MEDS ORDERED: POTASSIUM-SODIUM PHOSPHATE POWDER PACKET PO NR (10:30)
== END 2020-06-13 12:04 | disposition home or self-care (01) | DRG 420 ==
LOC: ER 13:27 → CVICU 15:56 → ENRESERV 19:12 → 5WST 06-12 21:10
PROVIDERS: ADMIT Family Medicine; ATTEND Family Medicine
DX: E10.10 Type 1 diabetes mellitus with ketoacidosis without coma (principal); E10.43 Type 1 diabetes mellitus with diabetic autonomic (poly)neuropathy; E44.1 Mild protein-calorie malnutrition; E83.39 Other disorders of phosphorus metabolism; E86.0 Dehydration; E87.1 Hypo-osmolality and hyponatremia; F12.90 Cannabis use, unspecified, uncomplicated; K31.84 Gastroparesis; Z68.21 Body mass index [BMI] 21.0-21.9, adult; E10.319 Type 1 diabetes mellitus with unspecified diabetic retinopathy without macular edema; E78.00 Pure hypercholesterolemia, unspecified; E78.5 Hyperlipidemia, unspecified; F17.210 Nicotine dependence, cigarettes, uncomplicated; I10 Essential (primary) hypertension; Z79.4 Long term (current) use of insulin; Z80.6 Family history of leukemia; Z82.49 Family history of ischemic heart disease and other diseases of the circulatory system; Z83.3 Family history of diabetes mellitus; Z87.440 Personal history of urinary (tract) infections; R65.10 Systemic inflammatory response syndrome (SIRS) of non-infectious origin without acute organ dysfunction
CPT/HCPCS: 36415; 36600; 71045; 74018; 80048; 80053; 80305; 81003; 82010; 82375; 82533; 82805; 82962; 83036; 83605; 83735; 84100; 84439; 84443; 84703; 85025; 93005; 96365; 99285; C9113; J1200; J1815; J2270; J2405; J2765; J3475; J3480; J3490; J7030; J7042; J7050; J7060

== ENCOUNTER 2022-10-21 08:05 | Inpatient (IN) | payer MEDICAID ==
[~2022-10-21] VITALS: Ht 149.9 cm; Wt 45.4 kg
[~2022-10-21 08:05] MED LIST changes: -ACYC200C PO; +ACYC200C31 PO; +LISI10TA26 PO; -LISI10TA5 PO
[2022-10-21] MEDS ORDERED: KETOROLAC 30MG/ML VIAL IV STA (08:06)
[2022-10-21] MEDS ORDERED: FAMOTIDINE 20MG/2ML VIAL IV STA (08:06)
[2022-10-21] MEDS ORDERED: SODIUM CHLORIDE 0.9% 1,000 ML IV ONE (08:15)
[2022-10-21] MEDS ORDERED: METOCLOPRAMIDE HCL 10MG/2ML VIAL IV ONE (08:15)
[2022-10-21 09:06] LABS: BASOPHILS % 0.2 % (0.0-2.0); EOSINOPHILS % 0.2 % (0.0-5.0); HEMATOCRIT. 28.2 % (36.0-48.0); HEMOGLOBIN. 9.5 g/dL (12.0-16.0); LYMPHOCYTES % 16.1 % (20.0-50.0); MEAN CORPUSCULAR HEMOGLOBIN 31.9 pg (28.0-32.0); MEAN CORPUSCULAR VOLUME 94.3 fL (81.0-99.0); MEAN PLATELET VOLUME 6.7 fl (7.4-10.4); MONOCYTES % 3.5 % (2.0-8.0); PLATELET 448 x1000/uL (130-400); RED BLOOD CELL COUNT 2.98 mill/uL (4.2-5.4); RED CELL DISTRIBUTION WIDTH 15.2 % (11.6-14.6)
[2022-10-21 09:12] LABS: CHLORIDE 97 mEq/L (98-107)
[2022-10-21 09:15] LABS: INR 1.1; PROTHROMBIN TIME 11.5 sec (9.6-11.0)
[2022-10-21 09:57] LABS: BG BASE EXCESS -0.6 mmol/L (-2.0-2.0); BG CARBOXYHEMOGLOBIN 1.1 % (0.5-1.5); BG DEOXYHEMOGLOBIN 2.4 % (0.0-5.0); BG FRACTION INSPIRED OXYGEN 21; BG HCO3 ACT 22.8 mmol/L (22.0-26.0); BG METHEMOGLOBIN 0.2 % (0.0-1.5); BG OXYGEN SATURATION 97.6 % (92.0-98.5); BG OXYHEMOGLOBIN 96.3 % (94.0-97.0); BG PCO2 32.5 mmHg (35.0-45.0); BG PH 7.463 (7.350-7.450); BG PO2 90.9 mmHg (75.0-100.0); BG SAMPLE SITE RIGHT BRACHIAL; BG TOTAL HEMOGLOBIN 10.2 g/dL (12.0-18.0); BG VENT MODE ROOM AIR
[2022-10-21 10:28] LABS: HCG SCREEN NEGATIVE
[2022-10-21] MEDS ORDERED: INSULIN LISPRO 100 UNITS/ML SUBCUT NR (12:15)
[2022-10-21] MEDS: ONDANSETRON HCL 4MG/2ML INJ IM NR ×2 (12:28→17:34)
[2022-10-21] MEDS ORDERED: DOCUSATE SODIUM 100MG CAPSULE PO PRN (12:30)
[2022-10-21] MEDS ORDERED: CLONIDINE 0.1MG TABLET PO PRN (12:30)
[2022-10-21] MEDS ORDERED: ACETAMINOPHEN 325MG TABLET PO PRN ×2 (12:30)
[2022-10-21] MEDS ORDERED: GUAIFENESIN 200MG/10ML SUGAR FREE UDC PO PRN (12:30)
[2022-10-21] MEDS ORDERED: IPRATROPIUM/ALBUTEROL 0.5-3(2.5)MG/3ML NEB HHN PRN (12:30)
[2022-10-21] MEDS ORDERED: INSULIN REGULAR (HUMULIN R) 300UNITS/3ML VIAL IV NR (13:00)
[2022-10-21] MEDS: SODIUM CHLORIDE 0.9% 1,000 ML IV SCH ×3 (13:00→21:27)
[2022-10-21] MEDS ORDERED: DEXTROSE 50% WATER 50ML SYRINGE IV PRN ×2 (13:00→16:00)
[2022-10-21] MEDS: HYDROCODONE/ACETAMINOPHEN 5/325MG TABLET PO PRN ×2 (13:03→17:49)
[2022-10-21] MEDS ORDERED: NALOXONE HCL 0.4MG/ML VIAL IV PRN (13:15)
[2022-10-21] MEDS ORDERED: INSULIN LISPRO 100 UNITS/ML SUBCUT SCH (13:20)
[2022-10-21] MEDS: BLOOD SUGAR DIAGNOSTIC STRIP TEST SCH ×3 (13:30→21:26)
[2022-10-21] MEDS ORDERED: ENOXAPARIN 40MG/0.4ML SYR SUBCUT SCH (14:00)
[2022-10-21 14:26] LABS: TOTAL IRON BINDING CAPACITY 315 ug/dL (250-450)
[2022-10-21 14:45] LABS: FERRITIN 26 ng/mL (10-291)
[2022-10-21] MEDS ORDERED: MORPHINE SULFATE 2 MG/ML CPJ (NOT FOR IM USE) IV NR (14:45)
[2022-10-21 14:56] LABS: VITAMIN B12 SERUM 1339 pg/mL (211-911)
[2022-10-21 15:20] LABS: FOLIC ACID (FOLATE) SERUM > 20.00 ng/mL (>5.38)
[2022-10-21 15:41] LABS: CLARITY URINE CLOUDY (CLEAR); COLOR URINE YELLOW (YELLOW); KETONES URINE 2+ (NEGATIVE); LEUKOCYTE ESTERASE URINE 1+ (NEGATIVE); NITRITE URINE NEGATIVE (NEGATIVE); OCCULT BLOOD URINE TRACE (NEGATIVE); PROTEIN URINE 1+ (NEGATIVE); SPECIFIC GRAVITY URINE 1.035 (1.005-1.030); UROBILINOGEN URINE 0.2 E.U./dL (0.2-1.0)
[2022-10-21 16:08] LABS: *AMPHETAMINES SCREEN URINE NEGATIVE (NEGATIVE); *BARBITURATES SCREEN URINE NEGATIVE (NEGATIVE); *BENZODIAZEPINES SCREEN URINE NEGATIVE (NEGATIVE); *COCAINE SCREEN URINE NEGATIVE (NEGATIVE); METHADONE URINE SCREEN NEGATIVE (NEGATIVE); PHENCYCLIDINE URINE SCREEN NEGATIVE (NEGATIVE)
[2022-10-21 16:11] LABS: CANNABINOID URINE SCREEN PRESUMTIVE POSITIVE (NEGATIVE); OPIATES URINE SCREEN PRESUMTIVE POSITIVE (NEGATIVE)
[2022-10-21 17:50] VITALS: BP 123/74
[2022-10-21] MEDS: INSULIN LISPRO 100 UNITS/ML SUBCUT SCH ×2 (17:50→21:00)
[2022-10-21 19:50] VITALS: BP 130/90
[2022-10-21] MEDS ORDERED: HYDROCODONE/ACETAMINOPHEN 10/325MG TABLET PO PRN (20:00)
[2022-10-21] MEDS: MAGNESIUM/ALUMINUM HYDROXIDE/SIMETHICONE 30ML UDC PO PRN (20:30)
[2022-10-21] MEDS: PANTOPRAZOLE SODIUM 40 MG/VIAL IV SCH (21:00)
[2022-10-21] MEDS ORDERED: FAMOTIDINE 20MG/2ML VIAL IV SCH (21:00)
[2022-10-21] MEDS: ATORVASTATIN CALCIUM 20MG TABLET PO SCH (21:00)
[2022-10-21] MEDS: INSULIN GLARGINE 100 UNITS/ML SUBCUT SCH (21:27)
[2022-10-21] MEDS: MORPHINE SULFATE 2 MG/ML CPJ (NOT FOR IM USE) IV PRN ×2 (23:34→23:35)
[2022-10-22] VITALS: BP 125/85
[2022-10-22 02:00] VITALS: BP 120/0
[2022-10-22 04:00] VITALS: BP 120/0
[2022-10-22] MEDS: MORPHINE SULFATE 2 MG/ML CPJ (NOT FOR IM USE) IV PRN ×4 (04:11→23:20)
[2022-10-22] MEDS: ONDANSETRON HCL 4MG/2ML INJ IV PRN ×2 (04:11→08:36)
[2022-10-22] MEDS: BLOOD SUGAR DIAGNOSTIC STRIP TEST SCH ×4 (05:27→21:11)
[2022-10-22] MEDS: INSULIN LISPRO 100 UNITS/ML SUBCUT SCH ×4 (06:21→21:33)
[2022-10-22] MEDS: MAGNESIUM/ALUMINUM HYDROXIDE/SIMETHICONE 30ML UDC PO PRN (06:27)
[2022-10-22 07:03] LABS: EOSINOPHILS % 1.5 % (0.0-5.0); HEMATOCRIT. 23.2 % (36.0-48.0); LYMPHOCYTES % 44.6 % (20.0-50.0); MEAN CORPUSCULAR HEMOGLOBIN 32.2 pg (28.0-32.0); MEAN CORPUSCULAR VOLUME 93.7 fL (81.0-99.0); MEAN PLATELET VOLUME 6.9 fl (7.4-10.4); MONOCYTES % 8.5 % (2.0-8.0); NEUTROPHILS % 44.4 % (40.0-76.0); PLATELET 392 x1000/uL (130-400); RED BLOOD CELL COUNT 2.48 mill/uL (4.2-5.4); RED CELL DISTRIBUTION WIDTH 14.6 % (11.6-14.6)
[2022-10-22 08:51] LABS: CHLORIDE 99 mEq/L (98-107)
[2022-10-22] MEDS ORDERED: PANTOPRAZOLE SODIUM 40 MG/VIAL IV SCH (09:00)
[2022-10-22 09:07] LABS: AMYLASE 122 IU/L (25-115); HDL CHOLESTEROL 50 mg/dL (40-59); LDL CHOLESTEROL 72 mg/dL (5-100); T4 FREE 1.21 ng/dL (0.76-1.46)
[2022-10-22] MEDS: SODIUM CHLORIDE 0.9% 1,000 ML IV SCH ×3 (09:47→22:20)
[2022-10-22] MEDS: PANTOPRAZOLE SODIUM 40 MG/VIAL IV SCH ×2 (09:53→21:00)
[2022-10-22] MEDS ORDERED: ACYCLOVIR 200MG CAPSULE PO SCH (10:00)
[2022-10-22] MEDS ORDERED: CEPHALEXIN 250MG CAPSULE PO SCH (11:00)
[2022-10-22] MEDS ORDERED: METOCLOPRAMIDE HCL 10MG/2ML VIAL IV SCH (12:00)
[2022-10-22] MEDS ORDERED: ENOXAPARIN 30MG/0.3ML SYR SUBCUT SCH (14:00)
[2022-10-22] MEDS: ENOXAPARIN 30MG/0.3ML SYR SUBCUT SCH (14:00)
[2022-10-22] MEDS ORDERED: CEFTRIAXONE 1,000 MG in DEXTROSE 5% WATER 50 ML IV SCH (17:00)
[2022-10-22 17:20] LABS: HEPATITIS B SURFACE ANTIGEN NEGATIVE
[2022-10-22] MEDS: ACYCLOVIR 400 MG TABLET PO SCH (18:43)
[2022-10-22] MEDS: ONDANSETRON 4MG ODT PO PRN (18:58)
[2022-10-22] MEDS: POLYETHYLENE GLYCOL 3350 (17GM) 1 DOSE PACK PO SCH (18:58)
[2022-10-22] MEDS: ATORVASTATIN CALCIUM 20MG TABLET PO SCH (21:23)
[2022-10-22] MEDS: INSULIN GLARGINE 100 UNITS/ML SUBCUT SCH (21:33)
[2022-10-22] MEDS: METOCLOPRAMIDE HCL 10MG TABLET PO SCH (23:59)
[2022-10-23 04:00] VITALS: BP 147/100
[2022-10-23] MEDS: SODIUM CHLORIDE 0.9% 1,000 ML IV SCH ×2 (04:42→11:40)
[2022-10-23] MEDS: METOCLOPRAMIDE HCL 10MG TABLET PO SCH ×2 (05:51→13:15)
[2022-10-23] MEDS: MORPHINE SULFATE 2 MG/ML CPJ (NOT FOR IM USE) IV PRN ×2 (05:52→10:15)
[2022-10-23] MEDS: BLOOD SUGAR DIAGNOSTIC STRIP TEST SCH ×2 (06:02→13:19)
[2022-10-23] MEDS: INSULIN LISPRO 100 UNITS/ML SUBCUT SCH ×2 (06:16→12:50)
[2022-10-23 07:32] LABS: BASOPHILS % 0.7 % (0.0-2.0); EOSINOPHILS % 1.4 % (0.0-5.0); HEMOGLOBIN. 11.1 g/dL (12.0-16.0); LYMPHOCYTES % 43.5 % (20.0-50.0); MEAN CORPUSCULAR HEMOGLOBIN 31.3 pg (28.0-32.0); MEAN CORPUSCULAR VOLUME 95.7 fL (81.0-99.0); MEAN PLATELET VOLUME 7.2 fl (7.4-10.4); MONOCYTES % 7.8 % (2.0-8.0); NEUTROPHILS % 46.6 % (40.0-76.0); PLATELET 532 x1000/uL (130-400); RED BLOOD CELL COUNT 3.55 mill/uL (4.2-5.4); RED CELL DISTRIBUTION WIDTH 14.6 % (11.6-14.6)
[2022-10-23 08:16] LABS: CHLORIDE 100 mEq/L (98-107)
[2022-10-23] MEDS: POLYETHYLENE GLYCOL 3350 (17GM) 1 DOSE PACK PO SCH (08:45)
[2022-10-23] MEDS: ACYCLOVIR 400 MG TABLET PO SCH (08:45)
[2022-10-23] MEDS: PANTOPRAZOLE SODIUM 40 MG/VIAL IV SCH (08:45)
[2022-10-23] MEDS: ENOXAPARIN 30MG/0.3ML SYR SUBCUT SCH (08:47)
[2022-10-23] MEDS ORDERED: PANTOPRAZOLE 40MG DR TABLET PO SCH (09:00)
[2022-10-23] MEDS: ONDANSETRON 4MG ODT PO PRN (10:15)
[2022-10-23 12:00] VITALS: BP 138/92
[2022-10-23] MEDS ORDERED: INSULIN LISPRO 100 UNITS/ML SUBCUT SCH (12:20)
[2022-10-23] MEDS ORDERED: NITR-87 PO (12:43)
[2022-10-23 13:37] VITALS: BP 136/91
[2022-10-23] MEDS ORDERED: FLUCONAZOLE 150MG TABLET PO SCH (14:00)
[2022-10-23] MEDS ORDERED: INSULIN GLARGINE 100 UNITS/ML SUBCUT SCH (22:00)
== END 2022-10-23 16:35 | disposition home or self-care (01) | DRG 48 ==
LOC: ER 08:05 → 6EST 11:42 → EDBEDREQTM 11:46 → EDBEDREQ 11:46 → SUPCPDRO 12:42 → ENRESERV 14:15
PROVIDERS: ADMIT Internal Medicine; ATTEND Internal Medicine
DX: E10.43 Type 1 diabetes mellitus with diabetic autonomic (poly)neuropathy (principal); E87.8 Other disorders of electrolyte and fluid balance, not elsewhere classified; D63.8 Anemia in other chronic diseases classified elsewhere; E87.1 Hypo-osmolality and hyponatremia; B37.31 Acute candidiasis of vulva and vagina; F12.10 Cannabis abuse, uncomplicated; E10.319 Type 1 diabetes mellitus with unspecified diabetic retinopathy without macular edema; E10.10 Type 1 diabetes mellitus with ketoacidosis without coma; K31.84 Gastroparesis; E78.5 Hyperlipidemia, unspecified; D18.03 Hemangioma of intra-abdominal structures; N39.0 Urinary tract infection, site not specified; Z20.822 Contact with and (suspected) exposure to COVID-19; K76.9 Liver disease, unspecified; I10 Essential (primary) hypertension; Z88.8 Allergy status to other drugs, medicaments and biological substances; Z79.899 Other long term (current) drug therapy; Z79.4 Long term (current) use of insulin
CPT/HCPCS: 36415; 36600; 71045; 74176; 76700; 80048; 80053; 80061; 80305; 81003; 82010; 82105; 82150; 82375; 82607; 82728; 82746; 82805; 82962; 83036; 83540; 83550; 84439; 84443; 84703; 85025; 85044; 86705; 86709; 86803; 87340; 87426; 93970; 99285; C9113; J0696; J1650; J1815; J1885; J2270; J2405; J2765; J3490; J7030; J7060; J8597; Q0162

== ENCOUNTER 2023-11-16 02:58 | Emergency (ER) | payer MEDICAID ==
[~2023-11-16 02:58] MED LIST changes: +NITR-87 PO
[2023-11-16 03:09] VITALS: PULSE 106
== END 2023-11-16 04:31 | disposition left against medical advice (07) ==
LOC: ER 03:43
DX: M54.9 Dorsalgia, unspecified (principal); Z53.21 Procedure and treatment not carried out due to patient leaving prior to being seen by health care provider
CPT/HCPCS: 99281

== ENCOUNTER 2025-03-07 13:40 | Emergency (ER) | payer MEDICAID ==
[~2025-03-07] VITALS: Ht 160 cm; Wt 60.0 kg
[2025-03-07 13:42] VITALS: O2SAT 99
[2025-03-07] MEDS: DEXTROSE 50% WATER 50ML SYRINGE IV ONE (14:15)
[2025-03-07] MEDS: DIPHENHYDRAMINE 50MG/ML VIAL IV ONE (14:31)
[2025-03-07] MEDS: CEFTRIAXONE SODIUM 1G VIAL IM ONE (14:31)
[2025-03-07] MEDS: DOXYCYCLINE HYCLATE 100MG CAPSULE PO ONE (14:31)
[2025-03-07 14:49] LABS: CLARITY URINE CLOUDY (CLEAR); COLOR URINE YELLOW (YELLOW); GLUCOSE URINE NEGATIVE (NEGATIVE); KETONES URINE TRACE (NEGATIVE); LEUKOCYTE ESTERASE URINE 1+ (NEGATIVE); NITRITE URINE NEGATIVE (NEGATIVE); OCCULT BLOOD URINE 1+ (NEGATIVE); PH URINE 5.5 (4.5-8.0); PROTEIN URINE 2+ (NEGATIVE); SPECIFIC GRAVITY URINE 1.022 (1.005-1.030)
[2025-03-07 14:59] LABS: BASOPHILS % 0.3 % (0.0-2.0); EOSINOPHILS % 1.1 % (0.0-5.0); HEMATOCRIT. 30.3 % (36.0-48.0); HEMOGLOBIN. 9.9 g/dL (12.0-16.0); MEAN CORPUSCULAR HEMOGLOBIN 31.1 pg (28.0-32.0); MEAN CORPUSCULAR HGB CONC 32.6 g/dL (31.0-37.0); MEAN CORPUSCULAR VOLUME 95.3 fL (81.0-99.0); MEAN PLATELET VOLUME 7.1 fl (7.4-10.4); MONOCYTES % 8.4 % (2.0-8.0); NEUTROPHILS % 56.2 % (40.0-76.0); PLATELET 368 x1000/uL (130-400); RED BLOOD CELL COUNT 3.18 mill/uL (4.2-5.4); RED CELL DISTRIBUTION WIDTH 12.9 % (11.6-14.6); WHITE BLOOD COUNT 6.4 x1000/uL (4.5-11.0)
[2025-03-07 15:08] LABS: CALCIUM 9.5 mg/dL (8.7-10.4)
[2025-03-07 15:11] LABS: BACTERIA URINE 1+; RBC URINE 0-2 /hpf (0-2); SQUAMOUS EPITHELIAL CELL URINE 2+ /lpf (RARE/1+); WBC URINE 0-2 /hpf (0-2); YEAST URINE NONE SEEN
[2025-03-07 15:12] LABS: CREATININE 1.3 mg/dL (0.6-1.0); HCG SCREEN NEGATIVE
[2025-03-07] MEDS ORDERED: DOXY150T8 MT (15:47)
[2025-03-07 16:00] VITALS: BP 123/77; PULSE 92; RESP 14; TEMP 36.2; O2SAT 100
== END 2025-03-07 16:02 | disposition home or self-care (01) ==
LOC: ER 13:40
DX: E11.649 Type 2 diabetes mellitus with hypoglycemia without coma (principal); R11.2 Nausea with vomiting, unspecified; A64 Unspecified sexually transmitted disease; I10 Essential (primary) hypertension; F12.90 Cannabis use, unspecified, uncomplicated; Z79.899 Other long term (current) drug therapy; Z79.624 Long term (current) use of inhibitors of nucleotide synthesis; Z79.4 Long term (current) use of insulin; Z88.8 Allergy status to other drugs, medicaments and biological substances; Z98.890 Other specified postprocedural states
CPT/HCPCS: 99284; 96374; 80048; 81003; 82962; 84703; 85025; 36415; 96372; J0696; J1200